=== PATIENT | male | born 1960 | race Caucasian/White ===

== ENCOUNTER 2020-04-22 20:24 | Emergency (ER) | payer MEDICARE, MEDICAID, SELFPAY ==
[2020-04-22 20:28] VITALS: BP 132/83; PULSE 88; RESP 24; TEMP 36.7; O2SAT 96; BMI 26.2
[2020-04-22 20:41] VITALS: PULSE 89; RESP 14; O2SAT 97
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
[2020-04-22 21:38] LABS: Basophils # 0.1 10^3/uL (0.0-0.1); Basophils % 0.9 %; Eosinophils # 0.2 10^3/uL (0.0-0.8); Eosinophils % 1.4 %; Hematocrit 41.5 % (42.0-52.0); Hemoglobin 12.7 g/dL (11.7-16.6); Lymphocytes # 4.1 10^3/uL (0.8-4.8); Lymphocytes % 30.9 %; Mean Corpuscular HGB Conc 30.6 g/dL (30.0-36.0); Mean Corpuscular Hemoglobin 29.3 pg (28.0-34.0); Mean Corpuscular Volume 95.8 fL (80-94); Mean Platelet Volume 10.1 fL (7.4-10.4); Monocytes # 0.9 10^3/uL (0.2-0.9); Monocytes % 6.6 %; Neutrophils # 8.04 10^3/uL (1.8-7.7); Neutrophils % 59.9 %; Nucleated Red Blood Cells % 0 %; Platelet Count 465 10^3/cmm (130-400); Red Blood Count 4.33 10^6/uL (4.1-5.3); Red Cell Distribution Width 15.3 % (12.1-15.1); White Blood Count 13.4 10^3/uL (4.0-10.0)
[2020-04-22 21:53] LABS: Alanine Aminotransferase 9 U/L (0-41); Albumin Level 4.1 g/dL (3.5-5.2); Alkaline Phosphatase 103 IU/L (40-130); Anion Gap 15.3 (5-19); Aspartate Amino Transferase 19 U/L (0-40); Blood Urea Nitrogen 12 mg/dL (6-20); Carbon Dioxide 24 mmol/L (22-29); Chloride 102 mmol/L (98-107); Globulin 3.8 g/dL (1.3-4.6); Glomerular Filtration Rate 30.9 mL/min (90-130); Glucose 86 mg/dL (65-115); Osmolality Calculated 279 mOsm/kg (285-295); Potassium 4.3 mmol/L (3.5-5.1); Sodium 137 mmol/L (136-145); Total Bilirubin 0.2 mg/dL (0.15-1.2); Total Protein 7.9 g/dL (6.6-8.7)
[2020-04-22 22:39] LABS: Add On to Lab Order(s) Added
[2020-04-22] MEDS: sodium chloride 0.9% 1,000 ML 999 ML IV (22:45)
[2020-04-22 22:50] LABS: Alcohol Level 198 mg/dL (0-10)
[2020-04-22 23:31] VITALS: RESP 15
[2020-04-23 01:41] VITALS: RESP 16
[2020-04-23 03:52] VITALS: BP 106/61; PULSE 89; PULSE 90; RESP 16; O2SAT 97
== END 2020-04-23 03:51 | disposition home or self-care (01) ==
PROVIDERS: Emergency Provider Emergency Medicine
DX: S09.8XXA Other specified injuries of head, initial encounter (principal); N28.9 Disorder of kidney and ureter, unspecified; F10.920 Alcohol use, unspecified with intoxication, uncomplicated; Y00.XXXA Assault by blunt object, initial encounter
CPT/HCPCS: 12345; 36415; 70450; 80053; 80307; 85025; 96360; 99283; J7030

== ENCOUNTER → 2022-07-29 15:00 | Outpatient (BNVA) | payer MEDICARE, MEDICAID, SELFPAY | PROVIDERS: Visit Provider Nurse Practitioner Family | DX: M25.532 Pain in left wrist (principal); N52.1 Erectile dysfunction due to diseases classified elsewhere; M25.552 Pain in left hip; Z12.5 Encounter for screening for malignant neoplasm of prostate; R22.32 Localized swelling, mass and lump, left upper limb | CPT/HCPCS: 73110; 80053; 80061; 85025; G0103 ==

== ENCOUNTER 2023-11-18 20:26 | Emergency (ER) | payer MEDICARE, SELFPAY ==
[2023-11-18 20:29] VITALS: BP 162/94; PULSE 112; RESP 16; TEMP 36.8; O2SAT 91; BMI 27.6
--- NOTE | 2023-11-18 20:44 | XRR_ITS ---
PROCEDURE INFORMATION: Exam: XR Left Hip Exam date and time: 11/18/2023 8:50 PM Age: 62 years old Clinical indication: Hip pain; Prior surgery; Surgery date: 6+ months; Surgery type: Multiple reconstructive surgeries; Patient HX: Lt leg pain after popping sensation while walking today; Unable to bear weight since; HX multiple recontructive surgeries to left hip/femur-2022 most recent TECHNIQUE: Imaging protocol: Radiologic exam of the left hip. Views: 2 or 3 views hip with pelvis when performed. COMPARISON: No relevant prior studies available. FINDINGS: Bones/joints: Surgical changes of revision left total hip arthroplasty. Acetabular cup appears abnormally medially rotated and the femoral neck component appears possibly bent or fractured. Grossly intact femoral stem component with cerclage wires in place. No discrete periprosthetic fracture. Soft tissues: Unremarkable. XR/XR hip LT 2-3V wo/w pel* [id number] IMPRESSION: Abnormal alignment/appearance of the revision left hip arthroplasty, with limited single-view evaluation. Recommend CT pelvis/left hip.
--- NOTE | 2023-11-18 21:12 | CTR_ITS ---
PROCEDURE INFORMATION: Exam: CT Pelvis Without Contrast; Skeletal Exam date and time: 11/18/2023 9:40 PM Age: 62 years old Clinical indication: Prior surgery; Surgery date: 6+ months; Surgery type: Left bola; Patient HX: C/O left hip pain after stepping wrong. ; Additional info: Left hp pain, HX of coplicated arthroplasty TECHNIQUE: Imaging protocol: Computed tomography of the pelvis without contrast. Exam focused on the skeleton. Radiation optimization: All CT scans at this facility use at least one of these dose optimization techniques: automated exposure control; mA and/or kV adjustment per patient size (includes targeted exams where dose is matched to clinical indication); or iterative reconstruction. 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 Lymph nodes: Multiple enlarged left iliac chain nodes, nonspecific. Bones/joints: There is abnormal internal and anterior rotation of the acetabular cup, suggesting loosening of the acetabular cup component. There is also abnormal thinning of the inner acetabular cortex in medial protrusion of the acetabular cup. There is abnormal lucency about the superior femoral stem component as well as about the cerclage wires, most notably the superior cerclage wire. No hardware fracture or discrete periprosthetic fracture. Femoral head component remains grossly well seated within the acetabulum. Partially imaged lower lumbar spondylosis and sacroiliac osteoarthritis. Soft tissues: Heterotopic ossification about the hip prosthesis. No discrete collection. No soft tissue gas. Atrophy of the left gluteal musculature and left piriformis. CT/CT bony pelvis [id number] IMPRESSION: 1. There is abnormal internal rotation of the acetabular cup, suggesting loosening of the acetabular cup component. There is also abnormal lucency about the femoral stem component and the cerclage wires, suggesting loosening. There is no discrete hardware fracture or periprosthetic fracture. Cannot definitively exclude prosthetic infection, and if clinically warranted, could consider a nuclear medicine three-phase bone scan followed by indium. 2. Multiple enlarged left iliac chain node, nonspecific, could be reactive.
[2023-11-18 21:29] VITALS: RESP 18; O2SAT 96
[2023-11-18] MEDS: oxyCODONE-APAP 5-325 mg Tablet 2 TAB PO (21:29)
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
--- NOTE | 2023-11-18 21:44 | CTR_ITS ---
PROCEDURE INFORMATION: Exam: CT Left Lower Extremity Without Contrast, Hip Exam date and time: 11/18/2023 9:45 PM Age: 62 years old Clinical indication: Prior surgery; Surgery date: 6+ months; Surgery type: Left bola; Patient HX: C/O left hip pain after stepping wrong. TECHNIQUE: Imaging protocol: CT of the left lower extremity without contrast was performed. Exam focused on the hip. Radiation optimization: All CT scans at this facility use at least one of these dose optimization techniques: automated exposure control; mA and/or kV adjustment per patient size (includes targeted exams where dose is matched to clinical indication); or iterative reconstruction. COMPARISON: CR (PELVIS, ) 11/18/2023 8:50 PM RADIATION DOSE METRICS: Total DLP (mGy-cm): 2153.94 FINDINGS: Bones/joints: Surgical changes of revision left hip arthroplasty. The distal femoral stem component with cerclage wires is intact. There is abnormal lucency about the proximal femoral stem component and superior cerclage wires, refer to dedicated CT pelvis report for description of the left hip prosthesis. No discrete periprosthetic fracture. Soft tissues: Gluteal piriformis atrophy. No acute abnormality. No abscess or soft tissue gas. CT/CT hip LT wo con* [id number] IMPRESSION: Distal femoral stem component with cerclage wires is intact. No evidence of loosening of the distal femoral stem component or discrete periprosthetic fracture. Refer to dedicated CT pelvis report for description of proximal femoral stem and acetabular component loosening.
[2023-11-18 22:33] VITALS: BP 137/77; PULSE 77; RESP 16; O2SAT 94
[2023-11-18 23:55] VITALS: BP 93/63; PULSE 68; RESP 18; TEMP 36.6; O2SAT 97
--- NOTE | 2023-11-20 08:05 | DCPLANNER ---
Message was sent to ortho on 11/20/23 at 0805. Clinic to contact patient
== END 2023-11-18 23:56 | disposition home or self-care (01) ==
PROVIDERS: Emergency Provider Emergency Medicine; PCP Family Medicine
DX: M25.552 Pain in left hip (principal); Z96.642 Presence of left artificial hip joint; F17.210 Nicotine dependence, cigarettes, uncomplicated
CPT/HCPCS: 72192; 73502; 73700; 99284